=== PATIENT | female | born 1985 ===

== ENCOUNTER 2018-10-13 14:47 | Outpatient (CLI) | payer OTHER ==
[~2018-10-13] VITALS: Ht 160 cm; Wt 56.7 kg
== END 2018-10-13 15:10 | disposition home or self-care (01) ==
LOC: OFIC 805 14:47
DX: J38.2 Nodules of vocal cords (principal); R49.0 Dysphonia

== ENCOUNTER 2019-07-26 17:34 | Emergency (ER) | payer OTHER ==
[~2019-07-26] VITALS: Ht 157.5 cm; Wt 58.1 kg
== END 2019-07-26 18:38 | disposition home or self-care (01) ==
LOC: ER 17:34
DX: J11.1 Influenza due to unidentified influenza virus with other respiratory manifestations (principal); B96.0 Mycoplasma pneumoniae [M. pneumoniae] as the cause of diseases classified elsewhere